=== PATIENT | female | born 1945 | race Caucasian/White ===

== ENCOUNTER 2018-07-24 11:38 | Observation (INO) ==
[2018-07-24 12:34] LABS: Baso % (Auto) 0.4 % (0.0-2.0); Eos # (Auto) 0.1 th/mm3 (0.0-0.4); Eos % (Auto) 2.6 % (0.0-4.0); Hemoglobin 14.4 gm/dL (11.6-15.3); Lymph # (Auto) 1.5 th/mm3 (1.0-4.8); Lymph % (Auto) 27.2 % (9.0-44.0); Mean Corpuscular HGB Conc 35.1 % (32.0-36.0); Mean Corpuscular Hemoglobin 32.9 pg (27.0-34.0); Mean Corpuscular Volume 93.7 fL (80.0-100.0); Mean Platelet Volume 10.1 fL (7.0-11.0); Mono # (Auto) 0.5 th/mm3 (0.0-0.9); Mono % (Auto) 9.2 % (0.0-8.0); Neut # (Auto) 3.3 th/mm3 (1.8-7.7); Neut % (Auto) 60.6 % (16.0-70.0); Platelet Count 199 th/mm3 (150-450); Red Blood Count 4.37 mil/mm3 (4.00-5.30); Red Cell Distribution Width 13.5 % (11.6-17.2); White Blood Count 5.4 th/mm3 (4.0-11.0)
[2018-07-24 12:55] LABS: Alanine Aminotransferase 39 U/L (10-53); Albumin 3.2 g/dL (3.4-5.0); Alkaline Phosphatase 60 U/L (45-117); Anion Gap 6 meq/L (5-15); Aspartate Aminotransferase 18 U/L (15-37); Blood Urea Nitrogen 14 mg/dL (7-18); Calcium 7.3 mg/dL (8.5-10.1); Carbon Dioxide 24.7 meq/L (21.0-32.0); Chloride 111 meq/L (98-107); Glomerular Filtration Rate Greater Than 89 mL/min (>89); Glucose,Random 119 mg/dL (74-106); Lipase 98 U/L (73-393); Magnesium 1.9 mg/dL (1.5-2.5); Potassium 3.7 meq/L (3.5-5.1); Sodium 142 meq/L (136-145); Total Protein 6.4 g/dL (6.4-8.2)
--- NOTE | 2018-07-24 13:12 | XR ---
EXAM DATE: 07/24/2018 1:07 PM EST AGE/SEX: 73 years / Female INDICATIONS: Chest pain and heavy feeling in chest started at 9am today, slightly short of breath CLINICAL DATA: This is the patient's initial encounter. Patient reports that signs and symptoms have been present for 1 day and indicates a pain score of 9/10. MEDICAL/SURGICAL HISTORY: Hypertension. None. COMPARISON: No prior exams available for comparison. FINDINGS: Minimal airspace disease at the left lung base. The cardiomediastinal contours are unremarkable. Oss eous structures are intact. CONCLUSION: 1. Minimal airspace disease at the left lung base, likely atelectasis. Electronically signed by: Cleve Booth MD Board Certified Radiologist 07/24/2018 1:11 PM KO T
--- NOTE | 2018-07-24 14:53 | CT ---
EXAM DATE: 07/24/2018 2:49 PM EST AGE/SEX: 73 years / Female INDICATIONS: Dizziness followed by chest pain. CLINICAL DATA: This is the patient's initial encounter. Patient reports that signs and symptoms have been present for 1 day and indicates a pain score of 2/10. MEDICAL/SURGICAL HISTORY: Carcinoma, ovarian. colitis Appendectomy. RADIATION DOSE: 15.92 CTDI (mGy) COMPARISON: No prior exams available for comparison. TECHNIQUE: Volumetric scanning was performed using a multi-row detector CT scanner during bolus infu alan of 71 ml Omnipaque 350 (iohexol) nonionic water-soluble contrast as a single exam dose. The orestes a was post processed with a variety of visualization algorithms including full volume maximum intensi ty projection and sliding thin slab reformation. Using automated exposure control and adjustment of t he mA and/or kV according to patient size, radiation dose was kept as low as reasonably achievable to obtain optimal diagnostic quality images. DICOM format image data is available electronically for r eview and comparison. FINDINGS: Pulmonary Arteries: No filling defects are seen in the pulmonary arteries out to the subsegmental ve ssels. The left and right pulmonary arteries are normal in diameter. Mild compensated cardiomegaly Lung: No infiltrates seen. Effusion: None. Mediastinum: No evidence of mediastinal or hilar adenopathy. Other: The axilla is unremarkable. CONCLUSION: 1. Negative for central pulmonary emboli. 2. Mild compensated cardiomegaly Electronically signed by: Chacho Schaffer MD Board Certified Radiologist 07/24/2018 2:51 PM EST
--- NOTE | 2018-07-24 15:13 | ED ---
HPI General Chief Complaint: Chest Pain Stated Complaint: Cardiac Time Seen by Provider: 07/24/18 11:47 Source: patient Mode of arrival: ambulatory Limitations: no limitations History of Present Illness HPI narrative: 73 yo F c/o chest pain starting suddenly about one hour prior to ED arrival. It was described as a severe "grabbing" sensation. It last about one minute or so. + Shortness of breath at time of pain. Dizziness followed until EMS arrived. Pt took nitro and it seemed to help. No n/v. In ED pt states pain has resolved. No fever. + Flight from [facility] about one week ago. No similar prior events. + HTN, HLD and diagnosis of angina from [place]. Related Data Home Medications Medication Instructions Recorded Confirmed amlodipine 2.5 mg PO DAILY 07/24/18 07/24/18 atorvastatin 20 mg PO QPM 07/24/18 07/24/18 levothyroxine [Synthroid] 100 mcg PO EVERY OTHER DAY 07/24/18 07/24/18 levothyroxine [Synthroid] 125 mcg PO EVERY OTHER DAY 07/24/18 07/24/18 metoprolol tartrate 25 mg PO BID 07/24/18 07/24/18 Allergies Allergy/AdvReac Type Severity Reaction Status Date / Time No Known Allergies Allergy Verified 07/24/18 11:54 Review of Systems ROS: all other systems reviewed are negative [facility] Medical History Medical History Colitis (Acute) HTN (hypertension) (Acute) Hypercholesterolemia (Acute) Hypothyroidism (Acute) Ovarian cancer (Acute) Ruptured appendix (Acute) Surgical History Surgical History History of appendectomy (Acute) Social History Social History Substance History: No History of Abuse Smoking Status: Never smoker How Often Do You Have a Drink Containing Alcohol: 4 or more times a week Recent Travel in [facility] within the Last 8 Weeks: No Recent Out of Country Travel within the Last 8 Weeks: No Immunization History Tetanus Immunization: >5 Years Exam Narrative Exam Narrative: GENERAL: 73 yo F, WNWD, pleasant, mildly distress SKIN: Focused skin assessment warm/dry. HEAD: Atraumatic. Normocephalic. EYES: Pupils equal and round. No scleral icterus. No injection or drainage. ENT: No nasal bleeding or discharge. Mucous membranes pink and moist. NECK: Trachea midline. No JVD. CARDIOVASCULAR: Regular rate and rhythm. No murmur appreciated. RESPIRATORY: No accessory muscle use. Clear to auscultation. Breath sounds equal bilaterally. GASTROINTESTINAL: Abdomen soft, non-tender, nondistended. Hepatic and splenic margins not palpable. MUSCULOSKELETAL: No obvious deformities. No clubbing. No cyanosis. No edema. NEUROLOGICAL: Awake and alert. No obvious cranial nerve deficits. Motor grossly within normal limits. Normal speech. PSYCHIATRIC: Appropriate mood and affect; insight and judgment normal. Course Initial Documented Vital Signs Temperature 99 F 07/24/18 11:42 Pulse Rate 66 07/24/18 11:42 Respiratory Rate 17 07/24/18 11:42 Blood Pressure 187/81 H 07/24/18 11:42 Pulse Oximetry 97 07/24/18 11:42 Last Documented Vital Signs Temperature 99 F 07/24/18 11:42 Pulse Rate 60 07/24/18 13:05 Respiratory Rate 16 07/24/18 13:05 Blood Pressure 143/68 H 07/24/18 13:05 Pulse Oximetry 96 07/24/18 13:05 Medical Decision Making [facility] Narrative Medical decision making narrative: Work up including CBC, CMP, Tn, BNP, CT pulmonary angiogram unremarkable so far. 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 Pt agreeable with plan. CP resolved at 305pm. EKG:sinus, rate 66, normal axis/ intervals, no ischemia Medical Screen Exam Complete: Yes Emergency Medical Condition: Yes Lab Data Result diagrams: 07/24/18 12:00 07/24/18 12:00 Lab Results 07/24/18 07/24/18 07/24/18 Range/Units 12:00 12:00 12:00 WBC 5.4 (4.0-11.0) th/mm3 RBC 4.37 (4.00-5.30) mil/mm3 Hgb 14.4 (11.6-15.3) gm/dL Hct 41.0 (35.0-46.0) % MCV 93.7 (80.0-100.0) fL MCH 32.9 (27.0-34.0) pg MCHC 35.1 (32.0-36.0) % RDW 13.5 (11.6-17.2) % Plt Count 199 (150-450) th/mm3 MPV 10.1 (7.0-11.0) fL Neut % (Auto) 60.6 (16.0-70.0) % Lymph % (Auto) 27.2 (9.0-44.0) % Louisa % (Auto) 9.2 H (0.0-8.0) % Eos % (Auto) 2.6 (0.0-4.0) % Baso % (Auto) 0.4 (0.0-2.0) % Neut # (Auto) 3.3 (1.8-7.7) th/mm3 Lymph # (Auto) 1.5 (1.0-4.8) th/mm3 [place] # (Auto) 0.5 (0.0-0.9) th/mm3 Eos # (Auto) 0.1 (0.0-0.4) th/mm3 Baso # (Auto) 0.0 (0.0-0.2) th/mm3 WBC Differential . Differential Comment Auto diff final Sodium 142 (136-145) meq/L Potassium 3.7 (3.5-5.1) meq/L Chloride 111 H (98-107) meq/L Carbon Dioxide 24.7 (21.0-32.0) meq/L Anion Gap 6 (5-15) meq/L BUN 14 (7-18) mg/dL Creatinine 0.61 (0.50-1.00) mg/dL Estimated GFR Greater than 89 (>89) mL/min Random Glucose 119 H (74-106) mg/dL Calcium 7.3 L* (8.5-10.1) mg/dL Calcium Adj for Albumin 7.9 L (8.5-10.1) mg/dL Magnesium 1.9 (1.5-2.5) mg/dL Total Bilirubin 0.8 (0.2-1.0) mg/dL AST 18 (15-37) U/L ALT 39 (10-53) U/L Alkaline Phosphatase 60 (45-117) U/L Troponin I Less than 0.02 L (0.02-0.05) ng/mL B-Natriuretic Peptide 81 (0-100) pg/mL Total Protein 6.4 (6.4-8.2) g/dL Albumin 3.2 L (3.4-5.0) g/dL Lipase 98 (73-393) U/L Serum Alcohol Less than 3 (0-5) mg/dL Imaging Data Radiologist's impression: Chest CTA 07/24/18 12:13 CONCLUSION: 1. Negative for central pulmonary emboli. 2. Mild compensated cardiomegaly Chest X-Ray 07/24/18 12:13 CONCLUSION: 1. Minimal airspace disease at the left lung base, likely atelectasis. Discharge Plan Discharge Disposition Patient Disposition: ED Admit(ED Internal Use Only) Discharge Condition Condition: Stable Discharge Order Discharge Orders: ED Use Only Admit Order (Routine); Ordered 07/24/18 Ordered By: Jose L Helton Physicians Team ED Provider: Jose L Helton Primary Care Provider: Primary Care GiovannyiYun Rxs /Orders / Referrals /Forms Prescriptions: No Action atorvastatin 20 mg Tablet 20 mg PO QPM RF: 0 amlodipine 2.5 mg Tablet 2.5 mg PO DAILY RF: 0 levothyroxine [Synthroid] 100 mcg Tablet 100 mcg PO EVERY OTHER DAY RF: 0 levothyroxine [Synthroid] 125 mcg Tablet 125 mcg PO EVERY OTHER DAY RF: 0 metoprolol tartrate 25 mg Tablet 25 mg PO BID RF: 0 Discharge Instructions Patient Printed Instructions: Chest Pain (ED) Discharge Interventions Interventions: Vital Signs Last Done: 07/24/18 13:05 Status ED Status: With Doctor
[2018-07-24] MEDS ORDERED: ALPRAZolam 0.25 MG Tablet PO PRN (16:10)
[2018-07-24] MEDS ORDERED: Acetaminophen 500 MG Tablet PO PRN (16:12)
--- NOTE | 2018-07-24 16:20 | P.HPCA ---
History of Present Illness Primary Care Physician: No Primary Care Physician Chief Complaint: Chest pain History of Present Illness: This is a 73-year-old female with history of hypertension and hyperlipidemia that presents to ED with complaint of dizziness and chest discomfort. Patient states that she began to feel dizzy which she describes as the room spinning while she was brushing her teeth this morning. She later she developed a very severe grabbing/squeezing discomfort in the left side of her chest that lasted 1 minute. She states that suddenly occurred and it suddenly resolved on its own. She has not had this discomfort in the past. She A states that after that resolved she began to have heaviness in the center of her chest lasted a couple hours. Found nothing to worsen or improve it when it was present per she recalls being short of breath, nauseous, and diaphoretic. She states she has been dealing with the dizziness which she again describes as the room spinning for the past month intermittently. She states that turning her head will worsen the symptoms. She is here visiting from [facility] and flew here about 1 week ago. She denies calf tenderness. She denies any calf swelling. She denied having any shortness of breath respiration chest discomfort prior to this morning at which point she had some shortness of breath with her chest discomfort. She has had cardiac evaluation in the past. States that about 5 years ago she attempted a treadmill stress test but was able to complete it. She states her physician prescribed her nitroglycerin and placed her on a blood pressure medicine. States he really was not followed up until about 6 months ago. At that time she saw a different specialist and wanted her to have a different type of stress test that was on the treadmill but patient canceled that appointment. History of hypertension hyperlipidemia. Patient also history of ovarian cancer and underwent chemotherapy and nephrectomy 2006. She history of hypothyroidism. Denies diabetes and known CAD. Her brother has valvular heart disease but she is unaware of coronary artery disease in her family. She is a lifetime non-smoker. - Diagnosis (1) Chest pain (2) Hypertension Review of Systems General: Patient denies fevers, chills. Recently flew here from [place]. HEENT: Patient denies headache, sore throat, difficulty swallowing. Cardiovascular: Has the chest discomfort as mentioned above. Denies sensation of heart beating rapidly or irregularly. No syncope. She was diaphoretic. Respiratory: She was short of breath. Denies inspirational chest discomfort. Denies coughing wheezing or hemoptysis. GI: She was nauseous. Patient denies vomiting, diarrhea, abdominal pain, bloody stools. Musculoskeletal: Patient denies joint pain or edema. Denies calf pain or edema. Neurovascular: Patient denies numbness, tingling, weakness in extremities. Denies headache. Endocrine: Denies polyuria and polydipsia. Hematologic: Denies easy bruising. Skin: Denies rash or itching. 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 - Medical History Medical History: Medical History (Last Reviewed 07/24/18 @ 11:59 by Elma Salamanca RN) Colitis HTN (hypertension) Hypercholesterolemia Hypothyroidism Ovarian cancer Ruptured appendix - Surgical History Surgical History: Surgical History (Last Updated 07/24/18 @ 11:59 by Elma Salamanca RN) History of appendectomy - Tobacco History Smoking Status: Never smoker - Alcohol History How Often Do You Have a Drink Containing Alcohol: 4 or more times a week - Substance Use History Substance History: No History of Abuse - Travel History Recent Travel in the [place] Within the Last 8 Weeks: No Recent Travel Out of the Country Within the Last 8 Weeks: No - Immunization History Tetanus Immunization: >5 Years Medications and Allergies Active Medications: Active Medications Acetaminophen (Tylenol) 500 mg PO Q6H PRN PRN Reason: pain scale 1-5 Hydrocodone Bitart/Acetaminophen ([place] 7.5/325) 1 tab PO Q6H PRN PRN Reason: pain scale 6-10 Albuterol (Duoneb Neb (Prn)) 1 ampul NEB Q4HR NEB PRN PRN Reason: SHORTNESS OF BREATH/WHEEZING Alprazolam (Xanax) 0.25 mg PO Q8H PRN PRN Reason: ANXIETY Aspirin (Aspirin) 325 mg PO DAILY [facility] Atorvastatin Calcium (Lipitor) 20 mg PO QPM AGUSTIN Clonidine HCl (Catapres) 0.1 mg PO Q6H PRN PRN Reason: SBP >165 OR DBP > 110 Metoprolol Tartrate (Lopressor) 25 mg PO BID [facility] Non-Formulary Medication (Amlodipine [Amlodipine]) 2.5 mg PO DAILY [facility] Ondansetron HCl (Zofran Inj) 4 mg IV.PUSH Q6H PRN PRN Reason: NAUSEA Sodium Chloride (Ns Flush) 2 ml IV.FLUSH UNSCH PRN PRN Reason: FLUSH AFTER USING IV ACCESS Sodium Chloride (Ns Flush) 2 ml IV.FLUSH BID AGUSTIN Sodium Chloride (Ns Flush) 2 ml IV.FLUSH PRN PRN PRN Reason: FLUSH AFTER USING IV ACCESS Allergies Allergy/AdvReac Type Severity Reaction Status Date / Time No Known Allergies Allergy Verified 07/24/18 11:54 Home Medications Medication Instructions Recorded Confirmed Type amlodipine 2.5 mg PO DAILY 07/24/18 07/24/18 History atorvastatin 20 mg PO QPM 07/24/18 07/24/18 History levothyroxine [Synthroid] 100 mcg PO EVERY OTHER DAY 07/24/18 07/24/18 History levothyroxine [Synthroid] 125 mcg PO EVERY OTHER DAY 07/24/18 07/24/18 History metoprolol tartrate 25 mg PO BID 07/24/18 07/24/18 History Exam Vital signs: Vital Signs 07/24/18 11:42 07/24/18 11:58 07/24/18 12:54 Temperature 99 F Pulse Rate 66 66 65 Respiratory Rate 17 18 16 Blood Pressure 187/81 H 169/76 H 170/80 H Pulse Oximetry 97 97 97 07/24/18 13:05 07/24/18 14:05 Temperature Pulse Rate 60 62 Respiratory Rate 16 16 Blood Pressure 143/68 H 151/79 H Pulse Oximetry 96 97 Intake & Output 07/23/18 07/24/18 07/24/18 18:59 06:59 18:59 Weight 74.843 kg Narrative: GENERAL: This is a well-nourished, well-developed patient, in no apparent distress. Patient speaks in clear complete sentences. Patient is pleasant. HEENT: Head is atraumatic and normocephalic. Neck is supple without lymphadenopathy and trachea is midline. No JVD or carotid bruits. CARDIOVASCULAR: Regular rate and rhythm without murmurs, gallops, or rubs. RESPIRATORY: Clear to auscultation. Breath sounds equal bilaterally. No wheezes , rales, or rhonchi. There is left-sided chest wall tenderness however this is not quite like the grabbing squeezing discomfort she had earlier today. No use of accessory muscles. GASTROINTESTINAL: Abdomen is nontender, nondistended. Abdomen soft. No obvious pulsatile mass or bruit. No CVA tenderness. Strong femoral pulses bilaterally. Normal bowel sounds in all quadrants. MUSCULOSKELETAL: Patient is moving upper and lower extremities freely. No calf tenderness or edema, no Homans sign. Strong pulses in upper and lower extremities. NEUROLOGICAL: Patient is alert and oriented. Cranial nerves 2-12 are grossly intact. No focal deficits and speech is clear. SKIN: No rash and turgor is normal. Results 07/24/18 12:00 07/24/18 12:00 Cardiac Enzymes 07/24/18 07/24/18 Range/Units 12:00 12:00 AST 18 (15-37) U/L Troponin I Less than 0.02 L (0.02-0.05) ng/mL B-Natriuretic Peptide 81 (0-100) pg/mL Coagulation 07/24/18 Range/Units 12:00 B-Natriuretic Peptide 81 (0-100) pg/mL CBC 07/24/18 Range/Units 12:00 WBC 5.4 (4.0-11.0) th/mm3 RBC 4.37 (4.00-5.30) mil/mm3 Hgb 14.4 (11.6-15.3) gm/dL Hct 41.0 (35.0-46.0) % Plt Count 199 (150-450) th/mm3 Neut # (Auto) 3.3 (1.8-7.7) th/mm3 Lymph # (Auto) 1.5 (1.0-4.8) th/mm3 [place] # (Auto) 0.5 (0.0-0.9) th/mm3 Eos # (Auto) 0.1 (0.0-0.4) th/mm3 Baso # (Auto) 0.0 (0.0-0.2) th/mm3 Comprehensive Metabolic Panel 07/24/18 Range/Units 12:00 Sodium 142 (136-145) meq/L Potassium 3.7 (3.5-5.1) meq/L Chloride 111 H (98-107) meq/L Carbon Dioxide 24.7 (21.0-32.0) meq/L BUN 14 (7-18) mg/dL Creatinine 0.61 (0.50-1.00) mg/dL Calcium 7.3 L* (8.5-10.1) mg/dL AST 18 (15-37) U/L ALT 39 (10-53) U/L Alkaline Phosphatase 60 (45-117) U/L Total Protein 6.4 (6.4-8.2) g/dL Albumin 3.2 L (3.4-5.0) g/dL Intake and Output 07/24/18 07/24/18 07/24/18 06:59 14:59 22:59 Other: Weight 74.843 kg Patient Weight 07/25/18 06:59 Weight 74.843 kg - Imaging and Cardiology Imaging: Impressions Chest CTA 07/24/18 12:13 CONCLUSION: 1. Negative for central pulmonary emboli. 2. Mild compensated cardiomegaly Chest X-Ray 07/24/18 12:13 CONCLUSION: 1. Minimal airspace disease at the left lung base, likely atelectasis. EKG interpretations - EKG EKG shows: sinus rhythm (Initial EKG is sinus rhythm without significant ST segment depressions or elevations.) Caprini VTE Risk Assessment Caprini VTE Risk Assessment: Moderate/High Risk (score >= 2) Caprini Risk Assessment Model: Point Value = 1 Point Value = 2 Point Value = 3 Point Value = 5 Age 41-60 Minor surgery BMI > 25 kg/m2 Swollen legs Varicose veins or History of unexplained or recurrent spontaneous Oral contraceptives or hormone replacement Sepsis (< 1 month) Serious lung disease, including pneumonia (< 1 month) Abnormal pulmonary function Acute myocardial infarction Congestive heart failure (< 1 month) History of inflammatory bowel disease Medical patient at bed rest Age 61-74 Arthroscopic surgery Major open surgery (> 45 min) Laparoscopic surgery (> 45 min) Malignancy Confined to bed (> 72 hours) Immobilizing plaster cast Central venous access Age >= 75 History of VTE Family history of VTE Factor V Leiden Prothrombin [id number] Lupus anticoagulant Anticardiolipin antibodies Elevated serum homocysteine Heparin-induced thrombocytopenia Other congenital or acquired thrombophilia Stroke (< 1 month) Elective arthroplasty Hip, pelvis, or leg fracture Acute spinal cord injury (< 1 month) Prophylaxis Regimen: Total Risk Factor Score Risk Level Prophylaxis Regimen 0-1 Low Early ambulation 2 Moderate Order ONE of the following: *Sequential Compression Device (SCD) *Heparin 5000 units SQ BID 3-4 Higher Order ONE of the following medications: *Heparin 5000 units SQ TID *Enoxaparin/Lovenox 40 mg SQ daily (WT < 150 kg, CrCl > 30 mL/min) *Enoxaparin/Lovenox 30 mg SQ daily (WT < 150 kg, CrCl > 10-29 mL/min) *Enoxaparin/Lovenox 30 mg SQ BID (WT < 150 kg, CrCl > 30 mL/min) AND/OR *Sequential Compression Device (SCD) 5 or more Highest Order ONE of the following medications: *Heparin 5000 units SQ TID (Preferred with Epidurals) *Enoxaparin/Lovenox 40 mg SQ daily (WT < 150 kg, CrCl > 30 mL/min) *Enoxaparin/Lovenox 30 mg SQ daily (WT < 150 kg, CrCl > 10-29 mL/min) *Enoxaparin/Lovenox 30 mg SQ BID (WT < 150 kg, CrCl > 30 mL/min) AND *Sequential Compression Device (SCD) Assessment and Plan - Assessment (1) Chest pain Code(s): R07.9 - Chest pain, unspecified Status: Acute (2) Hypertension Code(s): I10 - Essential (primary) hypertension Status: Acute - Plan * Chest pain: Patient will continue to have serial cardiac enzymes and EKGs for ruling out purposes. She will be evaluated by Dr. Salazar of cardiology and the chest pain center in the morning. Patient have a stress test in the morning if she rules out. She apparently was unable to complete a treadmill stress test 5 years ago and states she is even less active currently that then at that time. She will undergo a Lexiscan if she rules out. She would like to be discharged home if her stress test is nonischemic with instructions to follow -up with her PCP. Return to ED for interval issues. We will also give meclizine to see if helps with her dizziness. * Hypertension: Continue medication. Patient is stable at this time. She is agreeable to this plan.
[2018-07-24 18:57] LABS: Creatine Kinase 53 U/L (26-192)
[2018-07-24 20:55] LABS: Creatine Kinase 50 U/L (26-192)
[2018-07-24] MEDS: Metoprolol Tartrate 25 MG Tablet PO SCH (20:58)
[2018-07-25 08:02] VITALS: RESP 16
[2018-07-25] MEDS: Metoprolol Tartrate 25 MG Tablet PO SCH (08:02)
--- NOTE | 2018-07-25 08:28 | ECG ---
Date Performed: 07/24/2018 Time Performed: 11:49:25 PTAGE: 73 years EKG: Sinus rhythm NORMAL ECG NO PREVIOUS TRACING DOCTOR: Kristine Salazar Interpretating Date/Time 07/25/2018 08:27:48
--- NOTE | 2018-07-25 08:28 | ECG ---
Date Performed: 07/24/2018 Time Performed: 17:14:32 PTAGE: 73 years EKG: Sinus rhythm WITH OCCASIONAL VENTRICULAR PREMATURE COMPLEXES NONSPECIFIC T-WAVE ABNORMALITY BORDERLINE ECG Since PREVIOUS TRACING , no significant change noted PREVIOUS TRACIN07/24/2018 11.49 DOCTOR: Kristine Salazar Interpretating Date/Time 07/25/2018 08:28:06
--- NOTE | 2018-07-25 08:29 | ECG ---
Date Performed: 07/24/2018 Time Performed: 21:17:43 PTAGE: 73 years EKG: Sinus rhythm NORMAL ECG Since PREVIOUS TRACING , no significant change noted PREVIOUS TRACIN07/24/2018 17.14 DOCTOR: Kristine Salazar Interpretating Date/Time 07/25/2018 08:28:18
[2018-07-25] MEDS ORDERED: Regadenoson Inj 0.4 MG/5 ML Syringe IV.PUSH ONE (08:50)
[2018-07-25] MEDS ORDERED: amLODIPine 5 MG Tablet PO SCH (09:00)
[2018-07-25] MEDS ORDERED: Aspirin 325 MG Tablet PO SCH (09:00)
--- NOTE | 2018-07-25 10:32 | NM ---
EXAM DATE: 07/25/2018 10:13 AM EST AGE/SEX: 73 years / Female INDICATIONS:Angina. . Chest pain with dyspnea and dizziness. CLINICAL DATA: This is the patient's initial encounter. Patient reports that signs and symptoms have been present for 1 day and indicates a pain score of 6/10. MEDICAL/SURGICAL HISTORY: Hypercholesterolemia. Hypertension. Carcinoma, ovarian. Appendectom y. COMPARISON: No prior exams available for comparison. DOSE: 8.8 mCi Tc 99m Myoview at rest 25.5 mCi [id number] at stress 0.4 mg Lexiscan STRESS SYMPTOMS: Shortness of breath. EJECTION FRACTION: 61 % TECHNIQUE: The patient underwent pharmacologic stress with infusion of prescribed dose. Continuous ECG tracing was monitored during stress. Gated SPECT imaging was performed after stress and conventi onal SPECT imaging was performed at rest. The examination was performed on a SPECT/CT scanner, both attenuation and non-corrected datasets were reviewed. FINDINGS: Distribution: The maximum perfused segment at stress is in the anterolateral wall. Perfusion Study: The pattern of perfusion at stress is basically within normal limits with about 10 % redistribution in the mid anterior wall which would not be considered significant. Gated Study: There are intact wall motion and wall thickening without hypokinetic or dyskinetic segm ents. The ejection fraction is calculated at 61%. RISK CATEGORY: Low (<1% Annual Motality Rate) CONCLUSION: 1. No scintigraphic evidence of infarct or ischemia. 2. Excellent wall motion throughout been estimated ejection fraction of 61%. Electronically signed by: Jc Delcid MD Board Certified Radiologist 07/25/2018 10:31 AM EST
[2018-07-25 12:03] VITALS: BP 139/75; PULSE 66; TEMP 97.2; O2SAT 95
--- NOTE | 2018-07-25 16:54 | TR ---
Date Performed: 07/25/2018 Time Performed: 08:47:57 DOCTOR: Kristine Salazar DRUG LIST: CLINICAL HISTORY: REASON FOR TEST: REASON FOR ENDING: OBSERVATION: CONCLUSION: Lexiscan stress test was performed under standard four minute protocol. Radionuclid e was injected one minute prior to ending the test. No electrocardiographic abormalities were present to suggest ischemia. Nuclear imaging and interpretation are pending. COMMENTS: Lexiscan stress test was performed under standard four minute protocol. Radionuclide was injected one minute prior to ending the test. No electrocardiographic abormalities were present t o suggest ischemia. Nuclear imaging and interpretation are pending.
== END 2018-07-25 13:01 | disposition home or self-care (01) ==
LOC: NEPE 11:38 → NEDA 11:38 → NEPHCDU 16:54
PROVIDERS: ADMIT Internal Medicine Cardiovascular Disease; ATTEND Internal Medicine Cardiovascular Disease